=== PATIENT | female | born 1985 | race Caucasian/White ===

== ENCOUNTER → 2016-11-02 | Outpatient (CLI) | payer OTHER ==
[~2016-11-02] MED LIST: MTR600X PO; PRENTAB26 PO; RANI150T3 PO
--- NOTE | 2016-11-02 14:09 | DIAGNOSTIC IMAGING REPORT ---
KUB CLINICAL HISTORY: BLOOD IN URINE hematuria COMPARISON STUDY: No previous studies for comparison. FINDINGS: The soft tissues, psoas shadows, renal outlines and intestinal gas pattern appear normal. There is no evidence for bowel obstruction. No abnormal abdominal calcifications are seen. IMPRESSION: Normal study. Electronically signed by: Delvis Escoto M.D. 11/02/2016 2:07 PM Dictated Date/Time: 11/02/2016 2:07 PM
[2016-11-02 17:11] LABS: MANUAL MICROSCOPIC REQUIRED? YES; REVIEW REQ? NO; URINE APPEARANCE SLIGHTLY CLOUDY (CLEAR); URINE COLOR ORANGE
[2016-11-02 17:12] LABS: SULFASALICYLIC ACID NEG (NEG); URINE SPECIFIC GRAVITY 1.018 (1.000-1.030)
[2016-11-02 17:15] LABS: URINE BACTERIA NEG (NEG); URINE RBC 0-4 /hpf (0-4)
== END | disposition home or self-care (01) ==
LOC: C.RADBC 13:46
PROVIDERS: ATTEND Nurse Practitioner Family
DX: R30.0 Dysuria (principal); R31.9 Hematuria, unspecified

== ENCOUNTER 2017-05-20 10:47 | Emergency (ER) | payer OTHER ==
[~2017-05-20] VITALS: Ht 154.9 cm; Wt 65.5 kg
[2017-05-20 10:50] VITALS: BP 120/83; PULSE 86; TEMP 36.8; O2SAT 98; Ht 154.9 cm; Wt 65.5 kg
[2017-05-20] MEDS ORDERED: SULFAMETHOXAZOLE/TRIMETHOPRIM DS 800/160MG TAB PO ONE (11:15)
[2017-05-20] MEDS ORDERED: SULF800T23 PO (11:15)
--- NOTE | 2017-05-20 11:15 | EMERGENCY ROOM VISIT NOTE ---
History Report prepared by Jose: Juliann De La Cruz Under the Supervision of: Dr. Josué Sidhu D.O. First contact with patient: 11:02 Chief Complaint: URINARY SYMPTOMS Stated Complaint: UTI Nursing Triage Summary: Pt c/o visible blood in urine since this am. Urine getting darker. Abdominal, lower pain. Feels like UTI pain but "I'm peeing a lot". Urgency. Denies hx kidney stones. History of Present Illness The patient is a 31 year old female who presents to the Emergency Room with complaints of persistent hematuria that began this morning. The patient states that she has been having abdominal pain and dysuria as well. She notes she has been urinating with high frequency. The patient states that her last normal menstrual period was one week ago. Source of History: patient Onset: this morning Position: other (global) Quality: other (hematuria) Timing: other (persistent) Associated Symptoms: + abdominal pain, + urinary symptoms Review of Systems See HPI for pertinent positives & negatives. A total of 10 systems reviewed and were otherwise negative. Past Medical & Surgical Medical Problems: (1) Urinary tract infection Family History Patient reports no known family medical history. Social History Smoking Status: Never Smoker Alcohol Use: none Drug Use: none Marital Status: Occupation Status: employed Current/Historical Medications Scheduled Sulfa/Trimethoprim (Bactrim Ds 800MG/160MG), 1 TAB PO BID Allergies Coded Allergies: No Known Allergies (Unverified , NONE, 05/20/17) Physical Exam Vital Signs Date Time Temp Pulse Resp B/P (MAP) Pulse Ox O2 Delivery O2 Flow Rate FiO2 05/20/17 10:50 36.8 86 16 120/83 98 Room Air Physical Exam CONSTITUTIONAL/VITAL SIGNS: Reviewed / noted above. GENERAL: Non-toxic in appearance. INTEGUMENTARY: Warm, dry, and [place]. HEAD: Normocephalic. EYES: without scleral icterus or trauma. ENT/OROPHARYNX: clear and moist. LYMPHADENOPATHY/NECK: Is supple without lymphadenopathy or meningismus. RESPIRATORY: Lungs clear and equal. CARDIOVASCULAR: Regular rate and rhythm. GI/ABDOMEN: Mild tenderness over suprapubic area. No organomegaly or pulsatile mass. No rebound or guarding. Normal bowel sounds. EXTREMITIES: Warm and well perfused. BACK: No CVA tenderness. NEUROLOGICAL: Intact without focal deficits. PSYCHIATRIC: normal affect. MUSCULOSKELETAL: Normally developed with good muscle tone. Medical Decision & Procedures Laboratory Results Test 05/20/17 00:00 Bedside Urine Test NEG (NEG) Medications Administered Medications (Trade) Dose Ordered Sig/Marialuisa Route Start Time Stop Time Status Last Admin Dose Admin Trimethoprim/ Sulfamethoxazole (Septra Ds 800/ 160MG Tab) 1 tab NOW ONCE PO 05/20/17 11:15 05/20/17 11:16 DC 05/20/17 11:22 1 TAB ED Course 1103: Previous medical records were reviewed. The patient was evaluated in room C7. A complete history and physical examination was performed. 1115: Ordered Septra Ds 800/160MG Tab 1 tab PO. 1117: On reevaluation, the patient is resting comfortably. I discussed the urine dip results and findings with the patient. She verbalized agreement of the treatment plan. The patient was discharged home. Medical Decision Differential diagnosis: Etiologies such as appendicitis, diverticulitis, PUD, biliary pathology, UTI, pancreatitis, obstruction, mesenteric ischemia, aortic pathology, infections, inflammatory bowel disease, renal colic, as well as others were entertained. This is a 31-year-old female who presents to the ED with a chief complaint of urinary symptoms. The patient reports frequency, hematuria and urgency that started this morning. She also has some mild suprapubic discomfort on exam. She is not febrile. She denies flank pain or vomiting. A urine dip is suggestive of infection. This was sent for culture. Last menstrual period was one week ago. The patient was told the results of the test. She was started on Bactrim. She is felt to be stable for discharge. Medication Reconcilliation Current Medication List: was personally reviewed by me Blood Pressure Screening Patient's blood pressure: Normal blood pressure Impression Primary Impression: UTI (urinary tract infection) Additional Impression: Hematuria Scribe Attestation The scribe's documentation has been prepared under my direction and personally reviewed by me in its entirety. I confirm that the note above accurately reflects all work, treatment, procedures, and medical decision making performed by me. Departure Information Dispostion Home / Self-Care Prescriptions Sulfa/Trimethoprim (Bactrim Ds 800MG/160MG) Tab 1 TAB PO BID, #14 TAB Prov: Josué Sidhu D.O. 05/20/17 Referrals No Doctor, Assigned (PCP) Forms HOME CARE DOCUMENTATION FORM, IMPORTANT VISIT INFORMATION Patient Instructions My [facility] Additional Instructions Bactrim as prescribed. If symptoms do not improve over the next 3 days, see your doctor or return for recheck. Urine culture will be performed. This takes about 24-48 hours. Return for vomiting, back pains, high fevers or other concerns. Problem Qualifiers
--- NOTE | 2017-05-22 13:21 | Pharmacy Progress Note ---
ED Pharmacist Culture FollowUp Date of Service: May 22, 2017. Patient was sent home with a prescription for Bactrim DS 1 tab po BID x 7 days, which should cover the E. coli growing from the patient's urine culture.
== END 2017-05-20 11:20 | disposition home or self-care (01) ==
LOC: C.EDB 10:49 → C.EDC 11:20
DX: N39.0 Urinary tract infection, site not specified (principal); R31.9 Hematuria, unspecified; Z87.440 Personal history of urinary (tract) infections

== ENCOUNTER 2019-10-31 05:24 | Inpatient (IN) ==
--- NOTE | 2019-10-30 09:04 | History & Physical Report ---
Date of Service October 30, 2019 Assessment & Plan (1) Normal in multigravida, antepartum: (2) Previous delivery affecting , antepartum: The risks, benefits, and alternatives to surgery have been discussed. The benefits will be delivery of the infant and permanent surgical sterilization, the risks are bleeding, infection, inadvertent injury to bowel or bladder, readmission, reoperation, failure of the tubal ligation, and regret. All questions answered of the patient, the permit has been signed, and she wishes to proceed. (3) Admission for sterilization: History of Present Illness Chief Complaint: 1) Term 2) Previous C/S 3) Desired sterilization Primary Care Provider: NO PCP The patient is a 34-year-old 2 para 1 with an EDC of 02 November by first- trimester ultrasound was admitted at 39+ weeks gestational age for repeat section with bilateral tubal ligation. The patient's 1st was a section for failure to progress. She had been counseled on the risks and benefits of a repeat section versus a trial of labor in the patient has opted for repeat section. The patient is also requesting permanent surgical sterilization. The patient has had a benign course. Laboratory values show blood type of O positive, antibody negative, rubella immune, hepatitis-B negative, negative cystic fibrosis and SMA screening, negative cell free DNA screening, normal 1 hour Glucola at 16 weeks, noncompliant Glucola at 28 weeks, positive GBS bacteriuria during . Allergies Allergy/AdvReac Type Severity Reaction Status Date / Time No Known Drug Allergies Allergy Verified 10/30/19 09:21 Home Medications Home Medications Medication Instructions Recorded Confirmed Type prenat.vits,gale,ork-lert-szksh 1 tab PO DAILY 03/13/19 10/30/19 History acetaminophen 325 mg tablet 325 mg PO DAILY PRN tab 09/25/19 10/30/19 History Patient History Social History (Updated 03/13/19 @ 10:53 by Lissy Buenrostro) Preferred Language: Estonian Beliefs That Will Affect Care: None marital status: marital status details: riley Albrecht (35) [phone] Current Living Situation: Family Current Living Situation Comment: lives with spouse, daughter, and 1 cat, spouse to change litter. current occupational status: employed current occupation: [employer]- Patient access Feels Safe at Home: Yes Smoking Status: Never smoker Hx Alcohol Use: Yes Alcohol Intake Frequency: Holidays/Special Occasions Hx Substance Use: No Physical Exam Constitutional: WD/WN, vitals as above Respiratory: Auscultation: lungs clear to auscultation bilaterally Cardiovascular: RRR, no murmur, no edema Extremities: no calf tenderness Gastrointestinal (Abdomen): Gravid, vtx, (+) FHT's, EFW 8 1/2 LBS Genitourinary: Cervix: deferred Coding Level of Care Code None Diagnoses Normal in multigravida, antepartum Z34.80 Previous delivery affecting , antepartum O34.219 Admission for sterilization Z30.2
[~2019-10-31 05:24] MED LIST changes: +CEFAZOLIN 2,000 MG in SYRINGE 0 ML IV SCH; +CITRIC ACID/SODIUM CITRATE 15 ML UDC PO SCH; +LACTATED RINGER'S 1,000 ML IV SCH; -MTR600X PO; -PRENTAB26 PO; -RANI150T3 PO
[2019-10-31] MEDS ORDERED: SODIUM CHLORIDE 0.9% 250 ML IV PRN (05:27)
[2019-10-31 05:59] LABS: Basophils # (auto) 0.02 K/uL (0-0.2); Basophils % (auto) 0.2 %; Eosinophils # (auto) 0.09 K/uL (0-0.5); Eosinophils % (auto) 0.7 %; Hematocrit (blood only) 37.9 % (37-47); Hemoglobin 12.3 g/dL (12.0-16.0); Immature Granulocytes # (auto) 0.08 K/uL (0.00-0.02); Immature Granulocytes % (auto) 0.6 %; Lymphocytes # (auto) 2.91 K/uL (1.2-3.4); Lymphocytes % (auto) 23.6 %; Mean Corpuscular Volume 83.1 fL (80-100); Mean Platelet Volume 11.3 fL (7.4-10.4); Monocytes % (auto) 7.3 %; Neutrophils # (auto) 8.33 K/uL (1.4-6.5); Neutrophils % (auto) 67.6 %; Platelet Count 272 K/uL (130-400); RDW Coefficient of Variation 14.9 % (11.5-14.5); RDW Standard Deviation 45.3 fL (36.4-46.3); Red Blood Count 4.56 M/uL (4.2-5.4); White Blood Count 12.33 K/uL (4.8-10.8)
[2019-10-31] MEDS ORDERED: CITRIC ACID/SODIUM CITRATE 15 ML UDC PO SCH (06:00)
[2019-10-31] MEDS ORDERED: LACTATED RINGER'S 1,000 ML IV SCH ×2 (06:00→10:40)
[2019-10-31] MEDS ORDERED: CEFAZOLIN 2,000 MG in SYRINGE 0 ML IV SCH (06:00)
[2019-10-31 06:07] LABS: Mean Corpuscular Hgb Conc 32.5 g/dL (32-36)
--- NOTE | 2019-10-31 07:16 | History & Physical Bridge Note ---
Date of Service October 31, 2019 History & Physical Bridge Note I have examined the patient, reviewed the History & Physical and in the interval since the performance of the History & Physical I have noted the following changes of clinical significance: COVID 19 negative
[2019-10-31] MEDS ORDERED: MoRPHine SULFATE PF 1 MG/ML 10 ML AMP/VIAL ONE (07:33)
[2019-10-31 08:23] LABS: Base Excess Cord Arterial Bld -0.3 mEq/L (-9-1.8); CO2 Cord Arterial Blood 47 mmHg (39.1-73.5); HCO3 Cord Arterial Blood 26 mmol/L (19.7-28.5); PO2 Cord Arterial Blood 18 mmHg (4.1-31.7); pH Cord Arterial Blood 7.36 (7.1-7.38)
[2019-10-31 08:28] LABS: Base Excess Cord Venous Blood -1.5 mEq/L (-7.7-1.9); Cord Venous Blood HCO3 23 mmol/L (18.4-26.8); Cord Venous Blood PCO2 37 mmHg (30.4-57.2); Cord Venous Blood PO2 31 mmHg (14.1-43.3); Cord Venous Blood pH 7.41 (7.20-7.44)
--- NOTE | 2019-10-31 08:28 | Post Operative Brief Note ---
PG Immediate Post Op with CF Date of Surgery October 31, 2019 Pre & Post Diagnosis Operation Date: 10/31/19 07:30 Pre-Op Diagnosis: Term ; Previous Caesarean Section;Requests Sterilization Post-Op Diagnosis: Same; Delivery of a live male child at 0803 I identified the patient and participated in the time-out.: Yes Procedure Operation Date: 10/31/19 07:30 Actual Procedures p Section; - Lenny Hernandes Jr, MD, FACOG s Bilateral Post Tubal Ligation - Lenny Hernandes Jr, MD, FACOG Surgeon Lenny Hernandes Jr, MD, FACOG [employer]ong Estimated Blood Loss 800 Findings See Below (viable male infant, Apgars 8/9; weight 7lbs 10 ozs, gasses pending, normal appearing tubes and ovaries, bilateral tubal ligation) Specimens Specimen Description: A.Placenta-hold B.Cord Blood C.portions of right and left fallopian tubes D. arterial and venous cord gases Drains Adorno Catheter
[2019-10-31 08:29] LABS: Oxygen Sat Cord Arterial Blood < 60.0 % (<60)
[2019-10-31] MEDS ORDERED: ePHEDrine sulfate 50 MG/ML SYR ONE (08:34)
[2019-10-31] MEDS ORDERED: PHENYLEPHRINE 100MCG/ML 5ML SYR ONE (08:34)
[2019-10-31] MEDS ORDERED: ONDANSETRON INJ 2 MG/ML 2 ML VIAL ONE (08:35)
[2019-10-31] MEDS ORDERED: OXYTOCIN 10 UNITS/ML VIAL ONE (08:35)
--- NOTE | 2019-10-31 08:46 | Anesthesiology Consultation ---
Date of Service October 31, 2019 Assessment & Plan Chart Review Chart Review: Acceptable Risk for Surgery Consults Requested none History Surgery Operation Date: 10/31/19 07:30 Proposed Procedures p Section; - Lenny Hernandes Jr, MD, [facility]OG s Bilateral Post Tubal Ligation - Lenny Hernandes Jr, MD, FACOG Height/Weight Height: 5 ft 1 in Weight: 73.028 kg Allergies Allergy/AdvReac Type Severity Reaction Status Date / Time No Known Drug Allergies Allergy NKDA Verified 10/31/19 06:08 Medications Home Medications Medication Instructions Recorded Confirmed Last Taken prenat.vits,gale,iey-mjft-xpace 1 tab PO DAILY 03/13/19 10/31/19 10/30/19 08:00 aspirin 81 mg PO DAILY 10/31/19 10/31/19 10/17/19 08:00 Active Medications Generic Name Dose Route Start Last Admin Trade Name Freq PRN Reason Stop Dose Admin Lactated Ringer's 1,000 mls @ 999 mls/hr 10/31/19 06:00 10/31/19 05:45 Lr IV 10/31/19 18:00 999 mls/hr .Q1H1M ALISHA Administration NPO Date Last Intake of Fluids: 10/30/19 Time Last Intake of Fluids: 20:00 Date Last Intake of Solids: 10/30/19 Time Last Intake of Solids: 20:00 Past Medical History Medical History History of chicken pox Urinary tract infection (Resolved) Past Family History Family History Aunt Breast cancer, Onset Age: 54 maternal aunt Grandfather (Maternal) Colorectal cancer Denies family history of Ovarian cancer Crohn's disease Inflammatory bowel disease Past Surgical History Surgical History S/P primary low transverse OCTOBER 2013 S/P wisdom tooth extraction Social History Smoking Status: Never smoker Hx Alcohol Use: Yes alcohol intake frequency: holidays/special occasions only Alcohol Intake Frequency Comment: NOT CURRENTLY WHILE Hx Substance Use: No substance use type: does not use Physical Exam Vital Signs Last Vital Signs Temp 36.6 C 07/09/20 07:18 Pulse 71 10/31/19 08:41 Resp 18 10/31/19 07:18 BP 146/80 H 10/31/19 08:41 Pulse Ox 99 10/31/19 08:41 Testing Laboratory Results 10/31/19 05:46 Blood Type O Positive 10/31/19 05:46 Antibody Screen NEGATIVE 10/31/19 05:46
[2019-10-31] MEDS ORDERED: ePHEDrine sulfate 50 MG/ML AMP IV PRN (08:47)
[2019-10-31] MEDS ORDERED: MEPERIDINE HCL 25 MG/ML CARP/VIAL IV PRN (08:47)
[2019-10-31] MEDS ORDERED: DiphenhydrAMINE HCL 50 MG/ML VIAL IV PRN (08:47)
[2019-10-31] MEDS ORDERED: MoRPHine SULFATE 2 MG/ML CARP IV PRN (08:47)
[2019-10-31] MEDS ORDERED: NALOXONE HCL 0.08 MG in SYRINGE 1.8 ML IV PRN (08:47)
[2019-10-31] MEDS ORDERED: HYDROmorphone INJ 0.5 MG/0.5 ML SYR IV PRN (08:47)
[2019-10-31] MEDS ORDERED: PROMETHAZINE HCL 25 MG in SODIUM CHLORIDE 0.9% 50 ML IV PRN (08:47)
[2019-10-31] MEDS ORDERED: NALOXONE HCL 0.4 MG/1 ML VIAL/CARP IV PRN (08:47)
[2019-10-31] MEDS ORDERED: NALOXONE HCL 1 MG in SODIUM CHLORIDE 0.9% 1000ML 1,000 ML IV PRN (08:47)
[2019-10-31] MEDS ORDERED: ONDANSETRON INJ 2 MG/ML 2 ML VIAL IV PRN (08:47)
[2019-10-31] MEDS ORDERED: LACTATED RINGER'S 500 ML IV PRN (08:47)
[2019-10-31] MEDS ORDERED: MoRPHine SULFATE PF 1 MG/ML 10 ML AMP/VIAL INT SPINAL ONE (08:47)
[2019-10-31] MEDS ORDERED: METOCLOPRAMIDE HCL 20 MG in SODIUM CHLORIDE 0.9% 50 ML IV PRN (08:47)
--- NOTE | 2019-10-31 08:54 | Operative Report (OR) ---
DATE OF OPERATION: 10/31/2019 PREOPERATIVE DIAGNOSES: 1. Term . 2. Previous section. 3. Desired permanent surgical sterilization. POSTOPERATIVE DIAGNOSES: 1. Term . 2. Previous section. 3. Desired permanent surgical sterilization. PROCEDURE PERFORMED: 1. Repeat low cervical transverse section. 2. Bilateral tubal ligation. SURGEON: Lenny Hernandes MD. BARREL LOADER: Anika Watters MD. ANESTHESIA: Spinal. FINDINGS: Viable male infant with Apgars of 8 and 9 and a weight of 7 pounds 10 ounces. Arterial and venous cord gases are pending. Normal-appearing tubes and ovaries bilaterally. Bilateral tubal ligation performed. PROCEDURE IN DETAIL: The patient was taken to the operating room and after spinal anesthesia, was placed in supine position, draped and prepped in the usual fashion. Pfannenstiel type incision was made. Underlying subcutaneous tissue was dissected down to the ventral abdominal fascia, which was nicked and opened in a horizontal manner. Preperitoneal fascia was dissected away until the peritoneal cavity was entered and opened in a vertical manner. Peritoneum overlying the uterus was elevated, opened in a semi-lunar fashion, the inferior margin of which was taken down creating the bladder flap. The uterus was entered sharply and extended in a semilunar fashion manually. Artificial rupture of membranes for clear fluid. Viable male infant was delivered. Cord was clamped and cut, and the baby was passed off to pediatrics who was in attendance for the delivery. Cord gases, cord blood samples were obtained. Placenta was delivered spontaneously. The uterus was exteriorized and the uterine cavity was wiped clean of any residual blood tissue and/or clot. The uterine incision was then closed with 2 layers of 4-0 Vicryl, the first a running locking stitch, the second an imbricating stitch. Hemostasis achieved. The right fallopian tube was isolated followed to the fimbriated end, a segment of which was elevated, doubly ligated with 0 plain suture, cut and removed from the field. In a similar fashion, left fallopian tube was isolated and followed to the fimbriated end, a segment of which was elevated, doubly ligated with 0 plain suture, cut and removed from the field. Hemostasis was present on both tubal excision sites. The uterus was returned to the pelvic cavity. The pericolic gutters were cleared bilaterally of any blood tissue and/or clot. The uterine incision was then irrigated with 1000 mL of warm saline. Pedicles and uterine incision were inspected again for hemostasis, which was present. Sponge and needle count was correct. Rectus muscle was plicated in the midline with a running 2-0 Vicryl suture. The fascia was closed laterally with a running 0 Vicryl stitch. Subcutaneous tissue was irrigated with warm saline and the skin incision was closed with a 4-0 Monocryl subcuticular suture. Sterile dressing was applied. The patient was taken to the recovery room in satisfactory condition. I attest to the content of the Intraoperative Record and any orders documented therein. Any exception s are noted below.
[2019-10-31] MEDS ORDERED: NO NARCOTICS OR SEDATIVES SCH (09:00)
[2019-10-31] MEDS ORDERED: SODIUM CHLORIDE 0.9% 1000ML 1,000 ML IV SCH (09:00)
[2019-10-31] MEDS ORDERED: DC INTRASPINAL MORPHINE SCH (09:00)
[2019-10-31] MEDS ORDERED: HYDROCORTISONE ACETATE 25 MG SUPP PR PRN (10:27)
[2019-10-31] MEDS ORDERED: BENZOCAINE 20% AER SPR 82.5 GM CAN EXT PRN (10:27)
[2019-10-31] MEDS: KETOROLAC 30 MG/ML VIAL IV PRN ×3 (10:38→23:46)
[2019-10-31] MEDS ORDERED: DIPHTHERIA/TETANUS/PERTUSSIS 0.5 ML SYR/VIAL IM ONE (10:45)
[2019-10-31] MEDS: OXYTOCIN 20 UNITS in LACTATED RINGER'S 1,000 ML IV SCH ×2 (10:50→19:58)
--- NOTE | 2019-10-31 12:11 | Anesthesiology Progress Note ---
Date of Service October 31, 2019 Anesthesia Post Procedure Vital Signs Vital Signs: Temp Pulse Resp BP Pulse Ox 10/31/19 11:11 78 100 10/31/19 11:06 81 100 10/31/19 11:01 72 100 10/31/19 10:56 76 100 10/31/19 10:51 68 100 10/31/19 10:48 67 154/83 H 10/31/19 10:46 69 100 10/31/19 10:41 72 100 10/31/19 10:40 36.5 C 67 16 154/83 H 10/31/19 10:36 71 100 10/31/19 10:31 72 100 10/31/19 10:26 81 100 10/31/19 10:21 72 100 10/31/19 10:18 70 148/85 H 10/31/19 10:16 69 146/88 H 100 10/31/19 10:11 80 100 10/31/19 10:10 80 16 100 10/31/19 10:06 74 100 10/31/19 10:01 75 100 10/31/19 09:56 72 100 10/31/19 09:51 66 100 10/31/19 09:46 67 100 10/31/19 09:41 65 99 10/31/19 09:40 36.5 C 66 16 100 10/31/19 09:36 70 99 10/31/19 09:35 64 161/77 H 10/31/19 09:31 67 98 10/31/19 09:30 64 18 98 10/31/19 09:26 64 98 10/31/19 09:25 65 161/70 H 10/31/19 09:21 69 98 10/31/19 09:20 74 18 97 10/31/19 09:16 74 97 10/31/19 09:15 68 154/81 H 10/31/19 09:11 72 97 10/31/19 09:10 73 18 172/71 H 97 10/31/19 09:06 73 172/71 H 97 10/31/19 09:01 79 97 10/31/19 09:00 73 18 172/71 H 97 10/31/19 08:56 83 94 10/31/19 08:55 77 137/79 93 10/31/19 08:51 86 100 10/31/19 08:50 93 H 18 93 10/31/19 08:47 73 141/68 H 10/31/19 08:46 78 99 10/31/19 08:41 71 146/80 H 99 10/31/19 08:40 36.5 C 18 10/31/19 08:36 125 H 80 L 10/31/19 08:35 213 H 84 L 10/31/19 07:22 75 168/89 H 10/31/19 07:18 36.6 C 18 10/31/19 07:03 75 142/98 H 10/31/19 06:54 74 142/94 H 10/31/19 06:43 65 138/92 10/31/19 06:34 64 136/87 10/31/19 06:23 68 138/88 10/31/19 05:36 36.9 C 74 18 168/95 H 10/31/19 05:35 80 177/105 H Pain Intensity Abdomen: Pain Intensity: 2 Transfer of Care Handoff Completed per policy Notes Mental Status: alert / awake / arousable and participated in evaluation Patient Amnestic to Procedure: Yes Nausea / Vomiting: adequately controlled Pain: adequately controlled Airway Patency, RR, SpO2: stable & adequate BP & HR: stable & adequate Hydration State: stable & adequate Anesthetic Complications: no major complications apparent
[2019-11-01] MEDS ORDERED: ONDANSETRON INJ 2 MG/ML 2 ML VIAL IV PRN (02:47)
[2019-11-01] MEDS ORDERED: SUPERCREAM 0.870% 15 GM JAR EXT PRN (02:47)
[2019-11-01] MEDS ORDERED: DiphenhydrAMINE HCL 50 MG/ML VIAL IV PRN (02:47)
[2019-11-01] MEDS ORDERED: KETOROLAC 30 MG/ML VIAL IV PRN (02:47)
[2019-11-01] MEDS: IBUPROFEN 600 MG TAB PO PRN ×3 (04:15→14:03)
[2019-11-01 06:13] LABS: Basophils # (auto) 0.02 K/uL (0-0.2); Basophils % (auto) 0.2 %; Eosinophils # (auto) 0.14 K/uL (0-0.5); Eosinophils % (auto) 1.1 %; Hematocrit (blood only) 31.8 % (37-47); Immature Granulocytes # (auto) 0.05 K/uL (0.00-0.02); Immature Granulocytes % (auto) 0.4 %; Lymphocytes # (auto) 2.11 K/uL (1.2-3.4); Lymphocytes % (auto) 16.2 %; Mean Corpuscular Hemoglobin 26.4 pg (25-34); Mean Corpuscular Hgb Conc 31.4 g/dL (32-36); Mean Corpuscular Volume 83.9 fL (80-100); Monocytes # (auto) 0.72 K/uL (0.11-0.59); Monocytes % (auto) 5.5 %; Neutrophils # (auto) 9.96 K/uL (1.4-6.5); Neutrophils % (auto) 76.6 %; Platelet Count 213 K/uL (130-400); RDW Standard Deviation 46.3 fL (36.4-46.3); Red Blood Count 3.79 M/uL (4.2-5.4)
--- NOTE | 2019-11-01 06:46 | Obstetrical Progress Note ---
Date of Service November 01, 2019 Assessment & Plan (1) Previous delivery affecting , antepartum: - discussed surgery and finding with patient - will begin ambulation - routine care, doing well Subjective Ambulation: limited ambulation Feeding Type:: breast feeding Physical Exam Constitutional WD/WN, vitals as above Respiratory normal respiratory effort, lungs clear to auscultation Cardiovascular RRR, no murmur, no edema Gastrointestinal (Abdomen) Dressing removed, Incision intact, appropriate post-op tenderness Musculoskeletal (-) deep calf tenderness Results & Data ([facility]) Vital Signs (Past 12 Hours) Vital Signs Temp Pulse Resp BP Pulse Ox Pulse Ox 11/01/19 03:30 18 98 11/01/19 03:15 98.2 F 80 18 142/82 H 98 11/01/19 02:30 18 96 11/01/19 01:30 18 97 11/01/19 00:30 18 98 10/31/19 23:40 97.9 F 72 18 113/72 98 98 10/31/19 21:45 18 100 10/31/19 20:40 18 100 10/31/19 19:45 18 100
[2019-11-01] MEDS: PRENATAL VITAMIN 1 TAB PO SCH (08:25)
[2019-11-01] MEDS: FERROUS SULFATE 325 MG TAB PO SCH (08:25)
[2019-11-01] MEDS: OXYCODONE/ACETAMINOPHEN 5mg/325mg TAB PO PRN ×2 (09:42→17:43)
[2019-11-01] MEDS ORDERED: DOCUSATE SODIUM 100 MG CAP PO ONE (14:15)
[2019-11-01] MEDS: DOCUSATE SODIUM 100 MG CAP PO SCH (20:25)
[2019-11-01] MEDS ORDERED: SENNA 8.6 MG TAB PO SCH (21:00)
[2019-11-01] MEDS ORDERED: MAGNESIUM HYDROXIDE SUSP 30 ML UDC PO SCH (21:00)
[2019-11-01] MEDS ORDERED: SIMETHICONE 80 MG CHEW PO PRN (22:47)
[2019-11-02] MEDS: IBUPROFEN 600 MG TAB PO PRN ×4 (00:36→14:05)
[2019-11-02] MEDS: OXYCODONE/ACETAMINOPHEN 5mg/325mg TAB PO PRN ×4 (00:37→14:05)
--- NOTE | 2019-11-02 07:21 | Obstetrical Progress Note ---
Date of Service November 02, 2019 Assessment & Plan (1) Admission for sterilization: Postoperative from section patient meets discharge criteria as she is ambulating well tolerating an oral diet has minimal bleeding and no extremity pain. Discharge instructions were reviewed and prescriptions were sent to her pharmacy of choice patient advised to call with any concerns and follow-up in the office discussed Subjective Ambulation: ambulating normally Voiding: no voiding problems Diet Tolerance:: regular diet Lochia:: Small Current Pain Level(1-10): 2 Physical Exam Constitutional WD/WN, vitals as above Gastrointestinal (Abdomen) normal bowel sounds, soft, nontender, no hepatosplenomegaly (INCISION CDI. Ext neg) Results & Data ([facility]) Vital Signs (Past 12 Hours) Vital Signs Temp Pulse Resp BP Pulse Ox 11/02/19 00:30 98.1 F 73 20 110/75 97 11/01/19 19:25 97.5 F L 79 20 133/86 98
[2019-11-02] MEDS: FERROUS SULFATE 325 MG TAB PO SCH (08:31)
[2019-11-02] MEDS: PRENATAL VITAMIN 1 TAB PO SCH (08:31)
[2019-11-02] MEDS: DOCUSATE SODIUM 100 MG CAP PO SCH (08:31)
[2019-11-02 09:30] LABS: Hematocrit (blood only) 30.9 % (37-47)
--- NOTE | 2019-11-05 09:25 | Discharge Summary ---
Date of Service November 05, 2019 Admission HPI Per Admitting Provider The patient is a 34-year-old 2 para 1 with an EDC of 02 November by first- trimester ultrasound was admitted at 39+ weeks gestational age for repeat section with bilateral tubal ligation. The patient's 1st was a section for failure to progress. She had been counseled on the risks and benefits of a repeat section versus a trial of labor in the patient has opted for repeat section. The patient is also requesting permanent surgical sterilization. The patient has had a benign course. Laboratory values show blood type of O positive, antibody negative, rubella immune, hepatitis-B negative, negative cystic fibrosis and SMA screening, negative cell free DNA screening, normal 1 hour Glucola at 16 weeks, noncompliant Glucola at 28 weeks, positive GBS bacter iuria during . Admission Exam (Per Admitting) Constitutional WD/WN, vitals as above Respiratory normal respiratory effort, lungs clear to auscultation Auscultation: lungs clear to auscultation bilaterally Cardiovascular RRR, no murmur, no edema Extremities: no calf tenderness Discharge Data Consultations 10/31/19 05:25 Consult Anesthesiology Stat Procedures Performed Operation Date: 10/31/19 07:30 Actual Procedures p Section; - Lenny Hernandse Jr, [place], [facility] [place] Bilateral Post Tubal Ligation - Lenny Hernandes Jr, MD, [facility] Hospital Course (1) Previous delivery affecting , antepartum: On the day of admission the patient was taken to the operating room where she underwent the above listed procedures. Operative findings showed a viable male infant with Apgars of 8 and 9 weight of 7 pounds 10 ounces. Normal- appearing tubes and ovaries bilaterally with bilateral tubal ligation. On the first postoperative day the Adorno catheter was removed. H&H came back stable at 10 and 30. By the second postoperative day the patient was tolerating a regular diet. The patient was discharged home with routine discharge instr uctions and the prescriptions for the medications as listed as above. She will follow-up in the office for postoperative check, but always she is been instructed to call with any questions problems or difficulties. Coding Level of Care Code None Diagnoses Previous delivery affecting , antepartum O34.219
== END 2019-11-02 20:00 | disposition home or self-care (01) | DRG 788 ==
LOC: 4S1 05:24 → EDSTATUS 07:30 → 4S2 11:34
PROC: M.PPTLD (2019-10-31 07:30)